=== PATIENT | female | born 1965 | race Caucasian/White ===

== ENCOUNTER 2024-11-13 14:07 | Outpatient (CLI) | payer BC, SELFPAY ==
--- OUTSIDE RECORDS SUMMARY | 2024-11-13 14:21 | XMS_ITS | Encounter Summary ---
Author Organization [facility] Address [address] [place] [address] Care Team Providers Care Jelly Filter Tender Name Role Phone Laura Aguilar Primary Care Provider + [phone] Jeannette Gloria NP Primary Care Provider + [phone] Encounter Details Date Type Department Care Team (Late st Contact Info) Description 10/17/2022 [employer] Message Enc [facility] Medical Group Family & Internal Medicine [address] [address] [facility] urine culture result Social History Tobacco Use Types Packs/Day Years Used Date Smoking Tobacco: Former Smokeless Tobacco: Never Alcohol Use Standard Drinks/Week Comments Yes 0 (1 standard drink = 0.6 oz pur e alcohol) social use PHQ-2 Answer Date Recorded Patient Health Questionnaire-2 Score 0 10/19/2022 Comments No Sex and Gender Information Value Date Recorded Sex Assigned at Female 08/29/2024 7:35 AM DIRECT SUPPORT PROFESSIONAL CAREGIVER Legal Sex Female 4:16 PM CDT Gender Identity Not on file Sexual Orientation Not on file COVID-19 Exposure Response Date Recorded In the last 10 days, have yo u been in contact with someone who was confirmed or suspected to have Coronavirus/COVID-19? No / Unsure 10/19/2022 6:59 AM CDT documented as of this encounter Functional Status * Over the past 2 weeks, how often have you been bothered by any of the following problems? Question Answer Date of Assessment Author Status Little interest or pleasure in doing things Not at all 10/19/2022 7:09 AM CDT Maritza Paz MA Active Feeling down, depressed, or hopeless Not at all 10/19/2022 7:09 AM CDT Maritza Paz MA Activ e Patient Health Questionnaire-2 Score 0 10/19/2022 7:09 AM CDT Maritza Paz MA Active documented as of this encounter Plan of Treatment Not on file documented as of this encounter Visit Diagnoses Not on filedocumented in this encounter Care Teams Jelly Filter Tender Relationship Specialty [place] [address] [place] [address] PCP - General PHYSICIAN NECKTIES PAINTER 01/12/22 11/15/23 [place] [address] [address] [place] [address] PCP - General Nurse Practitioner Family 12/05/23 documented as of this encounter
--- OUTSIDE RECORDS SUMMARY | 2024-11-13 14:21 | XMS_ITS | Encounter Summary ---
Author Organization [facility] Address [address] [place] [address] Care Team Providers Care Property Insurance Agent Name Role Phone Laura Aguilar Primary Care Provider + [phone] Jeannette Gloria NP Primary Care Provider + [phone] Encounter Details Date Type Department Care Team (Late st Contact Info) Description 11/12/2023 [employer] Message Enc [facility] Medical Group Family & Internal Medicine [address] [address] Oz [facility] Provider Need follow up appt Social History Tobacco Use Types Packs/Day Years Used Date Smoking Tobacco: Former Passive Smoke Exposure: Past Smokeless Tobacco: Never Alcohol Use Standard Drinks/Week Comments Yes 0 (1 standard drink = 0.6 oz pur e alcohol) social use PHQ-2 Answer Date Recorded Patient Health Questionnaire-2 Score 0 05/10/2023 Comments No Sex and Gender Information Value Date Recorded Sex Assigned at Female 08/29/2024 7:35 AM HEAD OF STORE OPERATIONS Legal Sex Female 4:16 PM CDT Gender Identity Not on file Sexual Orientation Not on file documented as of this encounter Plan of Treatment Not on file documented as of this encounter Visit Diagnoses Not on filedocumented in this encounter Additional Health Concerns Assessment Noted Time PHQ-9 Depression Total Score: 0 11/14/19 23 1:00 PM CDT documented as of this encounter Care Teams Property Insurance Agent Relationship Specialty [place] [address] [place] [address] PCP - General PHYSICIAN SOAP DRIER OPERATOR 01/12/22 11/15/23 [place] [address] [address] [place] [address] PCP - General Nurse Practitioner Family 12/05/23 documented as of this encounter
--- OUTSIDE RECORDS SUMMARY | 2024-11-13 14:21 | XMS_ITS | Encounter Summary ---
Author Organization [facility] Health Address [address] [place] [address] Care Team Providers Care Restaurant Shift Supervisor Name Role Phone Andrzej Romero MD Primary Care Provider [phone] Wilmer Mccurdy MD Unavailable [phone] Encounter Details Date Type Department Care Team (Late st Contact Info) Description 05/29/2014 [facility] Outpatient Visit EXTERNAL NON-[facility] DEPT Star Bland MD Social History Tobacco Use Types Packs/Day Years Used Date Smoking Tobacco: Former Smokeless Tobacco: Never Alcohol Use Standard Drinks/Week Comments Yes 0 (1 standard drink = 0.6 oz pur e alcohol) Comments Unknown Sex and Gender Information Value Date Recorded Sex Assigned at Not on file Legal Sex Female 9:37 AM CDT Gender Identity Not on file Sexual Orientation Not on file 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
--- OUTSIDE RECORDS SUMMARY | 2024-11-13 14:21 | XMS_ITS | Clinical Summary ---
Author Organization [facility] Address [address] [place] [address] Care Team Providers Care Metal Room Dental Technician Name Role Phone Unavailable Primary Care Provider Unavailabl e Allergies Active Allergy Reactions Criticality Noted Date Comments Fentanyl Rash Low 05/12/2014 Patch/ RASH Morphine Other (See Comments) High 10/17/2022 Chest burning Medications venlafaxine (EFFEXOR XR) 37.5 mg Extended Release 24 hour capsule Take 37.5 mg by mouth daily. Active traMADol (ULTRAM) 50 mg tablet Take 50 mg by mouth 4 times daily as needed for Pain. 5 Active predniSONE (DELTASONE) 5 mg tablet Take 5 mg by mouth 2 times daily with meals. 5 Active hydroxychloroq uine (PLAQUENIL) 200 mg tablet Take 200 mg by mouth 2 times daily. 5 Active amLODIPine (NORVASC) 10 mg tablet Take 10 mg by mouth daily. 4 Active omeprazole (PriLOSEC) 40 mg Capsule, Delayed Release(E.C.) Take 40 mg by mouth daily. 4 Active traZODone (DESYREL) 50 mg tablet Take 50 mg by mouth daily at bedtime. 4 Active folic acid (FOLVITE) 1 mg tablet Take 1 mg by mouth daily. 5 Active methotrexate PF 25 mg/mL Solution Inject 1 mL by subcutaneous injection every 7 days. Active buPROPion HCL (WELLBUTRIN XL) 300 mg Extended Release 24 hour tablet Take 300 mg by mouth daily in the morning. 4 Active cyanocobalamin (VITAMIN B-12) 1,000 mcg/mL Solution Inject 1,000 mcg by intramuscular injection every 30 days. Active abatacept (ORENCIA SUBCUT) Inject 125 mg/mL by subcutaneous injection every 7 days. Active Active Problems No known active problems Encounters Date Type Department Care Team Description 11/13/2024 1:30 PM CDT Office Visit [facility] [place] [address] [place] [address] Wilmer Varela MD Chronic anemia (Primary Dx) 10/08/2024 Orders Only [facility] [place] [address] [place] [address] Wilmer Varela MD from Last 3 Months Family History Medical History Relation Name Comments Diabetes Brother No Known Problems Child Diabetes Father Heart Disease Father SLE Mother Diabetes Sister 1 No Known Problems Sister 2 Relation Name Status Comments Brother Alive Child Alive Father Mother Sister 1 Alive Sister 2 Alive Social History Tobacco Use Types Packs/Day Years Used Date Smoking Tobacco: Never Smokeless Tobacco: Never Alcohol Use Standard Drinks/Week Comments Yes 0 (1 standard drink = 0.6 oz pur e alcohol) Occasionally Comments Unknown Sex and Gender Information Value Date Recorded Sex Assigned at Not on file Legal Sex Female 9:53 AM NEWS VIDEOTAPE EDITOR Gender Identity Not on file Sexual Orientation Not on file Last Filed Vital Signs Vital Sign Reading Time Taken Comments Blood Pressure 157/93 11/13/2024 1:33 PM CDT Pulse 83 11/13/2024 1:27 PM CDT Temperature 35.8 C (96.5 F) 11/13/2024 1:27 PM CDT Respiratory Rate 16 11/13/2024 1:27 PM CDT Oxygen Saturation 98% 11/13/2024 1:27 PM CDT Inhaled Oxygen Concentration - - Weight 70.1 kg (154 lb 9.6 oz) 11/13/2024 1:27 P M CDT Height 157.5 cm (5' 2 ) 11/13/2024 1:27 PM CDT Body Mass Index 28.28 11/13/2024 1:27 PM CDT Plan of Treatment Upcoming Encounters Date Type Department Care Team (Late Contact Info) Description 01/19/2025 2:00 PM CDT Telephone Check Up [facility] [place] [address] [facility] [address] [place] [address] Wilmer Varela MD [address] [facility] [address] [place] [address] Health Maintenance Due Date Last Done Comments Pre-Diabetes and Diabetes Screening 1965 DTAP/TDAP/TD VACCINES (1 - Tdap) 1984 HEPATITIS B VACCINES (1 of 3 - 19+ 3-dose series) 1984 ZOSTER VACCINE (1 of 2) 1984 FIT-DNA Q 3 years 2010 FIT/FOBT Q 1 year 2010 Flex Sig/CT Colonography Q 5 years 2010 COVID-19 Vaccine (3 - Moderna risk series) 01/18/2021 12/21/2020, 11/16/2020 BREAST CANCER SCREENING 01/24/2023 01/24/2022, 01/24 INFLUENZA VACCINE (#1) 2024 Preventative Visit- Commercial 07/30/2024 COLORECTAL SCREENING 11/06/2027 11/05/2017 Colorectal Cancer Screening 11/06/2027 Procedures Procedure Name Priority Date/Time Associated Diagnosis Comments BASIC METABOLIC PANEL Routine 10/02/2024 3:48 PM NEWS VIDEOTAPE EDITOR BASIC METABOLIC PANEL Routine 10/02/2024 3:46 PM NEWS VIDEOTAPE EDITOR from Last 3 Months Results * BASIC METABOLIC PANEL (10/02/2024 3:48 PM NEWS VIDEOTAPE EDITOR) Only the most recent of2 resultswithin the time period is included. Blood us Provider Scanning CHEMISTRY ORDERABLES Final Res ult from Last 3 Months Insurance BCBS OUT OF STATE
--- OUTSIDE RECORDS SUMMARY | 2024-11-13 14:21 | XMS_ITS | Encounter Summary ---
Author Organization [facility] Address [address] [place] [address] Care Team Providers Care Collection Advisor Name Role Phone Laura Aguilar Primary Care Provider + [phone] Jeannette Gloria NP Primary Care Provider + [phone] Encounter Details Date Type Department Care Team (Late st Contact Info) Description 01/26/2023 [employer] Message Enc [facility] Medical Group Family & Internal Medicine [address] [address] [facility] Social History Tobacco Use Types Packs/Day Years Used Date Smoking Tobacco: Former Smokeless Tobacco: Never Alcohol Use Standard Drinks/Week Comments Yes 0 (1 standard drink = 0.6 oz pur e alcohol) social use PHQ-2 Answer Date Recorded Patient Health Questionnaire-2 Score 0 11/13/2022 Comments No Sex and Gender Information Value Date Recorded Sex Assigned at Female 08/29/2024 7:35 AM TUG BOAT CAPTAIN Legal Sex Female 4:16 PM CDT Gender Identity Not on file Sexual Orientation Not on file documented as of this encounter Plan of Treatment Not on file documented as of this encounter Visit Diagnoses Not on filedocumented in this encounter Additional Health Concerns Assessment Noted Time PHQ-9 Depression Total Score: 0 11/14/19 23 1:00 PM CDT documented as of this encounter Care Teams Collection Advisor Relationship Specialty Start Date End Date Laura Agu[place] [id number] [place] [address] [place] [address] PCP - General PHYSICIAN HEAT SEAL OPERATOR 01/12/22 11/15/23 [place] [address] [address] [facility] [address] [place] [address] PCP - General Nurse Practitioner Family 12/05/23 documented as of this encounter
--- OUTSIDE RECORDS SUMMARY | 2024-11-13 14:21 | XMS_ITS | Encounter Summary ---
Author Organization [facility] Address [address] [place] [address] Care Team Providers Care Training Personnel Supervisor Name Role Phone Laura Aguilar Primary Care Provider + [phone] Jeannette Gloria NP Primary Care Provider + [phone] Encounter Details Date Type Department Care Team (Late st Contact Info) Description 10/17/2022 [employer] Message Enc [facility] Medical Group Family & Internal Medicine [address] [address] [facility]ment Social History Tobacco Use Types Packs/Day Years Used Date Smoking Tobacco: Former Smokeless Tobacco: Never Alcohol Use Standard Drinks/Week Comments Yes 0 (1 standard drink = 0.6 oz pur e alcohol) social use PHQ-2 Answer Date Recorded Patient Health Questionnaire-2 Score 0 10/19/2022 Comments No Sex and Gender Information Value Date Recorded Sex Assigned at Female 08/29/2024 7:35 AM PAINTING DEPARTMENT SUPERVISOR Legal Sex Female 4:16 PM CDT Gender [...] on filedocumented in this encounter Care Teams Training Personnel Supervisor Relationship Specialty [place] [address] [place] [address] PCP - General PHYSICIAN HEATING ELEMENT REPAIRER 01/12/22 11/15/23 [place] [address] [address] [place] [address] PCP - General Nurse Practitioner Family 12/05/23 documented as of this encounter
--- OUTSIDE RECORDS SUMMARY | 2024-11-13 14:21 | XMS_ITS | Encounter Summary ---
Author Organization [facility] Address [address] [place] [address] Care Team Providers Care Gum Puller Name Role Phone Lucrecia Diaz MD Primary Care Provider [facility] Laura Mejia Primary Care Provider + [phone] Jeannette Gloria NP Primary Care Provider + [phone] Encounter Details Date Type Department Care Team (Late st Contact Info) Description 05/16/2018 Social Work HEALTH INFO [facility] Scanned, Documents Social History Tobacco Use Types Packs/Day Years Used Date Smoking Tobacco: Never Assessed Comments Unknown Sex and Gender Information Value Date Recorded Sex Assigned at Female 08/29/2024 7:35 AM DOT COMPLIANCE MANAGER Legal Sex Female 4:16 PM CDT Gender Identity Not on file Sexual Orientation Not on file documented as of this encounter Plan of Treatment Not on file documented as of this encounter Visit Diagnoses Not on filedocumented in this encounter Care Teams Gum Puller Relationship Specialty Start Date End Date Lucrecia Diaz MD PCP - General INTERNAL MEDICINE 07/26/18 03/29/20 [place] [address] [place] [address] PCP - General PHYSICIAN CLIENT SERVICES ASSOCIATE 01/12/22 11/15/23 Jeannette Gloria, PAIGE [address] [address] [place] [address] PCP - General Nurse Practitioner Family 12/05/23 documented as of this encounter
--- OUTSIDE RECORDS SUMMARY | 2024-11-13 14:21 | XMS_ITS | Clinical Summary ---
Author Organization [facility] Address [address] [place] [address] Care Team Providers Care Identification And Records Commander Name Role Phone Faizan Jeannette Saeur HAZARDOUS MATERIALS HANDLER Primary Care Provider + [phone] Allergies Active Allergy Reactions Criticality Noted Date Comments Fentanyl Rash Low 05/12/2014 Patch/ RASH Morphine Other (see comment) High 10/17/2022 Chest burning Medications traMADol 50 MG tablet Take 1 tablet (50 mg total) by mouth every 6 (six) hours as needed. 8 Active folic acid 1 MG tablet Take 1 tablet (1 mg total) by mouth daily. 8 Active cyanocobalamin 1000 MCG/ML injection 50,000 mLs (50,000,000 mcg total) monthly. 8 Active hydroxychloroquin e 200 MG tablet Take 2 tablets (400 mg total) by mouth. 4 Active gabapentin (NEURONTIN) 300 MG capsule TAKE 2 CAPSULES BY MOUTH EVERY DAY AT BEDTIME FOR SLEEP 2 Active HYDROcodone-aceta minophen (NORCO) 5-325 MG tablet TAKE 1 TABLET BY MOUTH THREE TIMES DAILY NEEDED FOR SEVERE PAIN 2 Active Insulin Syringe-Needle U-100 (INSULIN SYRINGE 1CC/31GX5/16 ) 31G X 5/16 1 ML Misc USE DIRECTED UNDER THE SKIN WEEKLY 3 Active Methotrexate Sodium (METHOTREXATE, CONTAINS PRESERVATIVE,) 50 MG/2ML injection INJECT 1 ML UNDER THE SKIN WEEKLY 3 Active diclofenac EC (VOLTAREN) 75 MG tablet Take 1 tablet (75 mg total) by mouth 2 (two) times daily. 4 Active Etanercept (ENBREL SURECLICK SC) Inject 40 mg into the skin once a week. Active buPROPion XL (WELLBUTRIN XL) 300 MG 24 hr tabletIndications :Moderate major depression (CMS/HCC),Depress ion screening Take 1 tablet (300 mg total) by mouth every morning. 90 tablet 3 4 Active omeprazole (PRILOSEC) 40 MG capsuleIndication s:Gastroesophagea l reflux disease without esophagitis Take 1 capsule (40 mg total) by mouth daily. 90 capsule 3 4 Active traZODone (DESYREL) 50 MG tabletIndications :Primary insomnia Take 1 tablet (50 mg total) by mouth nightly at bedtime. 90 tablet 3 4 Active amLODIPine (NORVASC) 10 MG tabletIndications :Essential hypertension Take 1 tablet (10 mg total) by mouth nightly at bedtime. 90 tablet 3 4 Active lisinopril-hydroC HLOROthiazide (ZESTORETIC) 20-12.5 MG tabletIndications :Essential hypertension Take 2 tablets by mouth every morning. 180 tablet 3 4 Active venlafaxine XR (EFFEXOR XR) 37.5 MG 24 hr capsuleIndication s:Generalized anxiety disorder,Moderate episode of recurrent major depressive disorder (CMS/HCC) Take 1 capsule (37.5 mg total) by mouth daily. 90 capsule 3 4 Active famotidine (PEPCID) 20 MG tabletIndications :Gastroesophageal reflux disease without esophagitis Take 1 tablet (20 mg total) by mouth 2 (two) times daily. 180 tablet 1 4 Active sodium chloride 1 GM tablet Take 1 tablet (1 g total) by mouth 3 (three) times daily. Active meclizine (ANTIVERT) 25 MG tabletIndications :Dizziness Take 1 tablet (25 mg total) by mouth 3 (three) times daily as needed for Dizziness. 90 tablet 5 Active ferrous gluconate (FERGON) 324 (38 FE) MG tabletIndications :Low serum iron Take 1 tablet (324 mg total) by mouth every other day. 45 tablet 1 5 Active Active Problems Problem Noted Date Diagnosed Date Generalized anxiety disorder 01/17/2024 Overweight (BMI 25.0-29.9) 01/17/2024 Thumb pain, left 07/30/2018 Assessment & Plan (07/30/2018 10:30 AM MED AIDE): Suspect related to RA flare. She is very interested in finding a new senior product marketing manager who is more responsive. In meantime will get Xray and she can try increasing her tramadol for next few days as only taking about one every Other day. Tobacco abuse 12/28/2017 Depression 03/24/2014 GERD (gastroesophageal reflux disease) 4 Essential hypertension 03/24/2014 Insomnia 03/24/2014 [facility] with negative rheumatoid factor ([facility]) 03/24/2014 Overview (12/07/2023): Seronegative arthritis Vitamin D deficiency 03/24/2014 Encounters Date Type Department Care Team Description 10/03/2024 Orders Only [facility] Family & Internal [facility] [id number] [place] [phone] Jeannette Gloria NP 10/02/2024 1:22 PM MED AIDE - 10/02/2024 11:59 PM MED AIDE Hospital Encounter [facility] [address] [place] [address] Jeannette Gloria NP Discharge Disposition: Home or Self Care (Routine Discharge) 10/02/2024 Travel 09/11/2024 12:24 PM MED AIDE - 09/11/2024 11:59 PM MED AIDE Hospital Encounter [facility] [address] [place] [address] Jeannette Gloria NP Discharge Disposition: Home or Self Care (Routine Discharge) 09/11/2024 8:20 AM MED AIDE Laboratory Only [facility] Family & Internal [facility] [address] [place] [address] Jeannette Gloria NP 09/11/2024 Travel 09/09/2024 Telephone [facility] Internal [facility] [address] [place] [address] Jeannette Gloria, PAIGE Referral 09/09/2024 MyChart Message Enc [facility] Internal [facility] [id number] [place] [phone] [facility] Provider Medication question 09/05/2024 Orders Only [facility] Internal [address] [phone] Jeannette Gloria NP 09/03/[address] [phone] Jeannette Gloria NP Referral 09/01/2024 1:10 PM MED AIDE - 09/01/2024 11:59 PM MED AIDE Hospital Encounter [facility] [address] [place] [address] Jeannette Gloria, PAIGE Discharge Disposition: Home or Self Care (Routine Discharge) 09/01/2024 10:00 AM MED AIDE Laboratory Only [address] [address] Jeannette Gloria NP 09/01/2024 9:20 AM MED AIDE Office Visit [facility] Internal [address] [phone] Jeannette Gloria NP Follow Up (5 month follow up hypertension / needing additional blood work ) 09/01/2024 Travel 08/29/2024 12:55 PM MED AIDE - 08/29/2024 11:59 PM MED AIDE Hospital Encounter [facility] [address] [place] [address] Jeannette Gloria NP Discharge Disposition: Home or Self Care (Routine Discharge) 08/29/2024 7:50 AM MED AIDE Laboratory Only [facility] Family & Internal [address] [address] Jeannette Gloria NP 08/29/2024 Travel 08/27/2024 Scan [facility] Scanned, [facility] 08/27/2024 Orders Only [facility] Internal [address] [phone] Jeannette Gloria NP 08/27/2024 Telephone [facility] Internal [address] [address] Jeannette Gloria, PAIGE Other (Abnormal labs ) 08/25/2024 Scan [facility] Scanned, [facility] Lab (SCAN) from Last 3 Months Immunizations Immunization Administration Dates Next Due Influenza Adult (Generic) 06/14/2022,06/21/2018 MODERNA COVID-19 (12+) MRNA, LNP-S, PF, 100 MCG/ 0.5 ML DOSE 12/21/2020,11/16/2020 Family History Medical History Relation Comments Lupus Mother Relation Status Comments Mother Social History Tobacco Use Types Packs/Day Years Used Date Smoking Tobacco: Former Passive Smoke Exposure: Past Smokeless Tobacco: Never Tobacco Cessation:Counseling Given: Not Answered Alcohol Use Standard Drinks/Week Comments Yes 0 (1 standard drink = 0.6 oz pur e alcohol) social use PHQ-2 Answer Date Recorded Patient Health Questionnaire-2 Score 0 09/01/2024 Comments No Sex and Gender Information Value Date Recorded Sex Assigned at Female 08/29/2024 7:35 AM MED AIDE Legal Sex Female 4:16 PM CDT Gender Identity Not on file Sexual Orientation Not on file Last Filed Vital Signs Vital Sign Reading Time Taken Comments Blood Pressure 140/86 09/01/2024 9:24 AM MED AIDE Pulse 84 09/01/2024 9:24 AM MED AIDE Temperature 36.8 C (98.2 F) 09/01/2024 9:24 AM MED AIDE Respiratory Rate 18 09/01/2024 9:24 AM MED AIDE Oxygen Saturation 99% 09/01/2024 9:24 AM MED AIDE Inhaled Oxygen Concentration - - Weight 68.2 kg (150 lb 6.4 oz) 09/01/2024 9:24 A M MED AIDE Height 154.9 cm (5' 1 ) 09/01/2024 9:24 AM MED AIDE Body Mass Index 28.42 09/01/2024 9:24 AM MED AIDE Plan of Treatment Health Maintenance Due Date Last Done Comments Annual Physical 1968 Pneumococcal Vaccine: 50+ Years (1 of 1 - PCV) 2015 Mammogram Screening 01/25/2024 01/24/2022 COVID-19 Vaccine (3 - season) 2024 12/21/2020, 11/16/2020 DTaP, Tdap and Td Vaccines (1 - Tdap) 12/06/2024 Postponed from 1984 (Patient Refused) Zoster Vaccines (1 of 2) 12/06/2024 Pos tponed from 2015 (Patient Refused) Colorectal Cancer Screening Colonoscopy (10 Years) 11/06/2027 11/05/2017 Hepatitis C Completed 08/24/2023, 04/30, 05/25/2021, Additional history exists PHQ-2 (Physician [place]) Completed 09/01/2024 Meningococcal B Vaccine Aged Out No l onger eligible based on patient's age to complete this topic Meningococcal Vaccine Aged Out No meaghan elis eligible based on patient's age to complete this topic RSV Immunizations Under 20 Months Aged Out No longer eligible based on patient's age to complete this topic Procedures Procedure Name Priority Date/Time Associated Diagnosis Comments BASIC METABOLIC PANEL Routine 10/02/2024 1:27 PM MED AIDE Hyponatremia IRON SAT PANEL (IRON,IBC,%SAT) Routine 10/02/2024 1:27 PM MED AIDE Iron deficiency anemia, unspecified iron deficiency anemia type CBC W/DIFF AUTOMATED Routine 10/02/2024 1:27 PM MED AIDE Iron deficiency anemia, unspecified iron deficiency anemia type COLLECTION VENOUS BLOOD VENIPUNCTURE Routine 09/11/2024 8:08 AM MED AIDE Hyponatremia BASIC METABOLIC PANEL Routine 09/11/2024 8:08 AM MED AIDE Hyponatremia COLLECTION VENOUS BLOOD VENIPUNCTURE Routine 09/01/2024 9:59 AM MED AIDE Hyponatremia BASIC METABOLIC PANEL Routine 09/01/2024 9:58 AM MED AIDE Hyponatremia COLLECTION VENOUS BLOOD VENIPUNCTURE Routine 08/29/2024 7:36 AM MED AIDE Hyponatremia BASIC METABOLIC PANEL Routine 08/29/2024 7:35 AM MED AIDE Hyponatremia OUTSIDE LAB (SCAN ORDER) 08/25/2024 OUTSIDE LAB (SCAN ORDER) 08/25/2024 HEP C SCANNED ORDERS Routine 08/24/2023 MG SCREENING W JOLIE BROOK DIGI Routine 01/24/2022 4:03 PM CDT Breast cancer screening by mammogram COLONOSCOPY Routine 11/05/2017 12:00 AM CDT from Last 3 Months or Most Recently Relevant to Health Maintenance Results * (ABNORMAL) IRON SAT PANEL (IRON,IBC,%SAT) (10/02/2024 1:27 PM MED AIDE) IRON 12(L) 50 - 170 MCG/DL 10/02/2024 2:05 PM MED AIDE [facility] IRON BINDING CAPACITY 413 250 - 450 MCG/DL 10/02/2024 2:05 PM MED AIDE [facility] IRON SATURATION 3(L) 20 - 55 % 2:05 PM [facility] 10/02/2024 1:27 PM MED AIDE us Jeannette Gloria NP LABORATORY Final Result [facility] [address] [place] [address], [place] [phone] * (ABNORMAL) BASIC METABOLIC PANEL (10/02/2024 1:27 PM MED AIDE) Only the most recent of4 resultswithin the time period is included. GLUCOSE 136(H) 70 - 99 MG/DL 10/02/2024 2:04 PM [facility] BUN 9 7 - 18 MG/DL 10/02/2024 2:04 PM [facility] CREATININE S/P/B 0.98 0.55 - 1.02 MG/DL 10/02/2024 2:04 PM [facility] SODIUM S/P/B 131(L) 136 - 145 MMOL/L 10/02/2024 2:04 PM [facility] POTASSIUM S/P/B 4.2 3.5 - 5.1 MMOL/L 10/02/2024 2:04 PM [facility] CHLORIDE S/P/B 95(L) 100 - 108 MMOL/L 10/02/2024 2:04 PM [facility] CO2 25.5 21 - 32 MMOL/L 10/02/2024 2:04 PM [facility] CALCIUM S/P/B 8.9 8.5 - 10.1 MG/DL 10/02/2024 2:04 PM [facility] ANION GAP 10.5 5 - 15 MMOL/L 10/02/2024 2:04 PM [facility] BUN CREATININE RATIO 9.2 6 - 26 10/02/2024 2:04 PM [facility] GFR ESTIMATE 66(L) >90 ML/MIN/1.7 3 M2 10/02/2024 2:04 PM [facility] Comment: NOTE: eGFR is not calculated for patients <18 years of age. This is an estimated GFR calculation using the new CKD EPI creatinine equation without race and so does not require a correction factor for race. This estimated GFR should not be used for calculating drug doses. 10/02/2024 1:27 PM MED AIDE us Jeannette Gloria NP LABORATORY Final Result [facility] [address] [place] [address], * (ABNORMAL) CBC W/DIFF AUTOMATED (10/02/2024 1:27 PM MED AIDE) WBC 10.83 4.4 - 11.0 x10'3/uL 10/02/2024 1:54 PM [facility] RBC 3.79(L) 4.50 - 5.10 x10'6/uL 10/02/2024 1:54 PM [facility] HGB 9.8(L) 12.3 - 15.3 G/DL 10/02/2024 1:54 PM [facility] HCT 32.7(L) 35.9 - 44.6 % 10/02/2024 1:54 PM [facility] MCV 86.3 80.0 - 96.0 FL 10/02/2024 1:54 PM [facility] MCH 25.9 25.3 - 30.9 PG 10/02/2024 1:54 PM [facility] MCHC 30.0(L) 31.0 - 34.1 G/DL 10/02/2024 1:54 PM [facility] RDW 18.6(H) 12.4 - 15.1 % 10/02/2024 1:54 PM [facility] PLT 309 151 - 353 x10'3/uL 10/02/2024 1:54 PM [facility] MPV 9.7 9.6 - 12.0 FL 10/02/2024 1:54 PM [facility] RBC MORPHOLOGY NORMAL 10/02/2024 1:54 PM [facility] PLT MORPH. NORMAL 10/02/2024 1:54 PM [facility] WBC MORPHOLOGY NORMAL 10/02/2024 1:54 PM [facility] LYMPHOCYTES % 16.0 15.8 - 45.0 % 10/02/2024 1:54 PM [facility] NEUTROPHILS % 76.4(H) 42.1 - 71.9 % 10/02/2024 1:54 PM MED AIDE [facility] MONOCYTES % 6.6 5.7 - 12.5 % 10/02/2024 1:54 PM [facility] EOSINOPHILS 0.1 0.0 - 5.6 % 10/02/2024 1:54 PM [facility] BASOPHILS 0.5 0.0 - 1.3 % 10/02/2024 1:54 PM [facility] ABS. NEUTROPHILS 8.29(H) 1.40 - 6.00 x10'3/uL 10/02/2024 1:54 PM MED AIDE [facility] IMMATURE GRANS % 0.4 0.0 - 0.5 % 10/02/2024 1:54 PM [facility] ABS. LYMPHOCYTES 1.73 0.80 - 4.70 x10'3/uL 10/02/2024 1:54 PM [facility] 10/02/2024 1:27 PM MED AIDE us Jeannette Gloria NP LABORATORY Final Result [facility] [address] [place] [address], * OUTSIDE LAB (SCAN ORDER) (08/25/2024) Only the most recent of2 resultswithin the time period is included. 08/25/2024 us [facility] Scanned SCANNING Final Resu lt * HEP C SCANNED ORDERS (08/24/2023) us [facility] Scanned SCANNING Final Resu lt [facility] ONBASE * MG SCREENING W JOLIE BROOK DIGI (01/24/2022 4:03 PM CDT) Anatomical Region Laterality Modality Breast Bilateral Mammography 02/02/2022 9:19 AM CDT Impressions 02/02/2022 9:22 AM CDT IMPRESSION: 1. No mammographic evidence of malignancy. 2. BI-RADS Category 1 - negative. MQSA BI-RADS Categories: Category 0 - needs additional imaging evaluation. Category 1 - negative. Category 2 - benign findings. Category 3 - probably benign findings, but short interval follow-up is recommended. Category 4 - suspicious abnormality and biopsy should be considered though the lesion may well be benign. Category 5 - highly suggestive of malignancy and appropriate action should be taken. Category 6 - known biopsy-proven malignancy A) A negative report should not delay a biopsy if a dominant or clinically suspicious mass is present. B) Adenosis and dense breasts may obscure an underlying neoplasm. C) Study interpreted with computer aided detection. Ordered By: LAURA ANDRADE Interpreted By: Johnny Fierro, 02/02/2022 9:19 AM Narrative 02/02/2022 9:22 AM CDT IMAGING STUDIES: Bilateral screening mammograms with computer-aided detection with 2-D and 3-D imaging. Tomosynthesis. DATE: 01/24/2022 3:10 PM HISTORY: Screening . Routine exam COMPARISON: 06/11/2012. 10/19/2015. TISSUE TYPE: The breast tissue is almost entirely fatty. FINDINGS: 1. Bilateral screening mammograms with computer detection with 2-D and 3-D imaging. Tomosynthesis. Fatty replaced fibroglandular tissue pattern is present. Stable benign lymph nodes in the upper outer quadrants of both breasts 2. No malignant microcalfcifications, new dominant masses, or architectural distortion. 3. No skin thickening or nipple retraction. Axillary regions are within normal limits. us Laura CHAO MAMMO Final Result * Colonoscopy (11/05/2017 12:00 AM CDT) 11/05/2017 11/05/2017 Narrative [facility] TO EPIC CONVERSION - 11/05/2017 12:00 AM CDT Documented hx of procedure Procedure Note Shira Orlando MD - 06/02/2018 Documented hx of procedure us Generic Conversion [facility] PROCEDURE ORDERABLES Final Result [facility] TO EPIC CONVERSION from Last 3 Months or Most Recently Relevant to Health Maintenance Insurance [employer] [facility] [employer] [facility] Advance Directives Documents on File Type Date Recorded Patient Dictaphone Technician Expl anation Advance Directives and Living Will 11/05/2017 12:00 AM ADVANCED DIRECTIVES Care Teams Identification And Records Commander Relationship Specialty [place] [id number] [facility] [address] [place] [address] PCP - General Nurse Practitioner Family 12/05/23
--- OUTSIDE RECORDS SUMMARY | 2024-11-13 14:21 | XMS_ITS | Encounter Summary ---
Author Organization [facility] Address [address] [place] [address] Care Team Providers Care Research Microbiologist Name Role Phone Jeannette Gloria NP Primary Care Provider + [phone] Encounter Details Date Type Department Care Team (Late st Contact Info) Description 01/25/2024 Factonomy Message Enc [facility] Family & Internal Medicine [address] [address] Jeannette Gloria [place] [id number] [place] [address] Blood pressure Social History Tobacco Use Types Packs/Day Years Used Date Smoking Tobacco: Former Passive Smoke Exposure: Past Smokeless Tobacco: Never Alcohol Use Standard Drinks/Week Comments Yes 0 (1 standard drink = 0.6 oz pur e alcohol) social use PHQ-2 Answer Date Recorded Patient Health Questionnaire-2 Score 0 01/25/2024 Comments No Sex and Gender Information Value Date Recorded Sex Assigned at Female 08/29/2024 7:35 AM [employer]OR[employer]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 Question Answer Date of Assessment Author Status Little interest or pleasure in doing things Not at all 01/25/2024 10:30 AM CDT Jory Kuhn LPN Active Feeling down, depressed, or hopeless Not at all 01/25/2024 10:30 AM France Gama LPN Active Patient Health Questionnaire-2 Score 0 01/25/2024 10:30 AM Jory Gama LPN Active * Question Answer Date of Assessment Author Status Trouble falling or staying asleep, or sleeping too much Not at all 01/25/2024 10:30 AM Jory Gama LPN Active Feeling tired or having little energy Several days 01/25/2024 10:30 AM Jory Gama LPN Active Poor appetite or overeating Several days 01/25/2024 10:30 AM Jory Gama LPN Active Feeling bad about yourself - or that you are a failure or have let yourself or your family down Not at all 01/25/2024 10:30 AM Jory Gama LPN Active Trouble concentrating on things, such as reading the newspaper or watching television Not at all 01/25/2024 10:30 AM Jory Gama LPN Active Moving or speaking so slowly that other people could have noticed? Or the opposite - being so fidgety or restless that you have been moving around a lot more than usual. Not at all 01/25/2024 10:30 AM Jory Gama LPN Active Thoughts that you would be better off or hurting yourself in some way Not at all 01/25/2024 10:30 AM Jory Gama LPN Active Patient Health Questionnaire-9 Score 2 01/25/2024 10:30 AM Jory Gama LPN Active * Calculated C-SSRS Risk Score (Lifetime/Recent) Answer Date of Assessment Author Status No Risk Indicated 01/25/2024 10:30 AM Mainor Gama LPN Active * If you checked off any problems on this questionnaire so far, Question Answer Date of Assessment Author Status How difficult have these problems made it for you to do your work, take care of things at home, or get along with other people? Not difficult at all 01/25/2024 10:30 AM Jory Gama LPN Active * Over the last 2 weeks, how often have you been bothered by any of the following problems? Question Answer Date of Assessment Author Status Feeling nervous, anxious, or on edge 0 01/25/2024 10:31 AM Jory Gama LPN Ac tive Not being able to stop or control worrying 0 01/25/2024 10:31 AM Jory Gama LPN A ctive Worrying too much about different things 0 01/25/2024 10:31 AM Jory Gama LPN A ctive Trouble relaxing 1 01/25/2024 10:31 AM Jory Gama LPN Active Being so restless that it is hard to sit still 1 01/25/2024 10:31 AM Jory Gaam L PN Active Becoming easily annoyed or irritable 1 01/25/2024 10:31 AM Jory Gama LPN Ac tive Feeling afraid as if something awful might happen 0 01/25/2024 10:31 AM Jory Gama LPN Ac tive JULIETA-7 Total Score 3 01/25/2024 10:31 AM Jory Savage LPN Active * [place] Suicide Severity Rating Scale (Screener/Recent Self-Report) Question Answer Date of Assessment Author Status 1. Wish to be (Past 1 Month) No 01/25/2024 10:30 AM Jory Gama LPN Ac tive 2. Non-Specific Active Suicidal Thoughts (Past 1 Month) No 01/25/2024 10:30 AM Jory Gama LPN Ac tive 6. Suicidal Behavior (Lifetime) No 01/25/2024 10:30 AM CDT Rokita, Jory M, MEDICAL BILLING SUPERVISOR Ac tive documented as of this encounter Plan of Treatment Not on file documented as of this encounter Visit Diagnoses Not on filedocumented in this encounter Additional Health Concerns Assessment Noted Time PHQ-9 Depression Total Score: 2 01/25/20 24 10:30 AM CDT documented as of this encounter Care Teams Research Microbiologist Relationship Specialty Start Date End Date Jeannette Gloria, EQUIPMENT SERVICE ASSOCIATE [address] [place] [address] PCP - General Nurse Practitioner Family 12/05/23 documented as of this encounter
--- OUTSIDE RECORDS SUMMARY | 2024-11-13 14:21 | XMS_ITS | Clinical Summary ---
Author Organization [facility] Address [address] [place] [address] Care Team Providers Care Spinner Cap Frame Name Role Phone Wilmer Mccurdy MD Unavailable [phone] Source Comments [facility] [employer],non-owned Affiliates and Associated Physician Practices is amultiple site organization consisting of ambulatory clinics and hospital sitesin [place], [place] and [place]. This disclosure is being madepursuant to the Care Everywhere program and may not contain all information available regarding this patient. Last updated 18.[facility] [employer] Allergies Active Allergy Reactions Criticality Noted Date Comments Fentanyl 05/12/2014 Patch/ RASH Medications * Be aware that medications may not be up to date on this document. Alwaysverify current medications with the patient. lisinopril (PRINIVIL; ZESTRIL) 10 MG tablet Take 10 mg by mouth once daily. Active escitalopram (LEXAPRO) 10 MG tablet Take 10 mg by mouth once daily. Active fenofibrate (LOFIBRA) 54 MG tablet Take 54 mg by mouth once daily. Take with largest meal of the day. Active alendronate (FOSAMAX) 70 MG tablet Take 70 mg by mouth every 7 days before meal. Take in morning with full glass of water on empty stomach and remain upright for 30 min Active hydroxychloroq uine (PLAQUENIL) 200 MG tabletIndicati ons:Rheumatoid arthritis(714. 0) (HCC) Take 2 Tabs by mouth once daily. 60 Tab 11 4 Active acetaminophen (TYLENOL) 500 MG tabletIndicati ons:Rheumatoid arthritis(714. 0) ([facility]) Take 2 Tabs by mouth 3 times daily. Maximum allowable Acetaminophen amount = 4 Grams (4000 mg) / 24 hours. 4 Active Additional Information Patient not taking.Reported on 05/01/2017 trazodone (DESYREL) 100 MG tabletIndicati ons:Insomnia 0.5-1 Tabs at bedtime. 30 Tab 12 4 Active Cholecalcifero l (VITAMIN D) 1000 UNITS capsuleIndicat ions:Osteoporo sis Take 1 Cap by mouth once daily. 4 Active calcium carbonate (TUMS) 500 MG chew tabletIndicati ons:Osteoporos is Take 2 Tabs by mouth 2 times daily with morning and evening meal. 90 Tab 0 4 Active Additional Information Patient not taking.Reported on 05/01/2017 methotrexate 2.5 MG tablet Take 8 Tabs by mouth every 7 days. 32 Tab 6 4 Active Additional Information Patient not taking.Reported on 05/01/2017 morphine CR 12hr (MS CONTIN) 15 MG tabletIndicati ons:Sciatica, right,long term care pharmacist current use of opiate analgesic Take 1 Tab by mouth every 12 hours. 60 Tab 0 4 Active Additional Information Patient not taking.Reported on 05/01/2017 magnesium hydroxide (MILK OF MAGNESIA CONC) 2400 MG/10ML suspensionIndi cations:Consti pation Take 5 mL by mouth once daily. 1 Bottle 12 4 Active Additional Information Patient not taking.Reported on 05/01/2017 senna (SENOKOT) 8.6 MG tabletIndicati ons:Constipati on Take 1 Tab by mouth once daily. 0 4 Active Additional Information Patient not taking.Reported on 05/01/2017 methadone (DOLOPHINE) 10 MG tabletIndicati ons:Rheumatoid arthritis(714. 0) (HCC),Sciatica , right,long term care pharmacist current use of opiate analgesic Take 0.5 Tabs by mouth 3 times daily. 90 Tab 0 4 Active folic acid (FOLVITE) 1 MG tablet Take one tab po daily 30 Tab 6 5 Active Vortioxetine HBr (TRINTELLIX PO) Active Active Problems Problem Noted Date Diagnosed Date Rheumatoid arthritis 05/12/2014 Overview (06/06/2015): Seronegative arthritis Trochanteric bursitis 05/12/2014 Family History Medical History Relation Name Comments CAD (Coronary Artery Disease) Father Diabetes Father Hypertension Father Arthritis - Osteo Mother Hypertension Mother Lupus Mother Diabetes Sister Hypertension Sister Relation Name Status Comments Father Mother Sister Social History Tobacco Use Types Packs/Day Years [...] Industry Job Start Date Job End Date 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[employer] Not on file Not on file Not on file Last Filed Vital Signs Vital Sign Reading Time Taken Comments Blood Pressure 138/82 05/01/2017 10:16 AM CDT Pulse 65 05/01/2017 10:16 AM CDT Temperature 36.8 C (98.3 F) 05/01/2017 10:16 AM CDT Respiratory Rate 16 05/01/2017 10:16 AM CDT Oxygen Saturation 99% 05/01/2017 10:16 AM CDT Inhaled Oxygen Concentration - - Weight 59 kg (130 lb) 05/01/2017 10:16 AM CDT Height 154.9 cm (5' 1 ) 05/01/2017 10:16 AM CDT Body Mass Index 24.56 05/01/2017 10:16 AM CDT Plan of Treatment Health Maintenance Due Date Last Done Comments COLOGUARD (AGES 45-75) - COL ON CA SCREENING 1965 COLON MONITORING 1965 COLONOSCOPY - COLON CA SCREENING 1965 CT COLONOGRAPHY - COLON CA SCREENING 1965 Colorectal Cancer Screening 1965 FIT - COLON CA SCREENING 1965 FLEX SIG - COLON CA SCREENING 1965 LIPID TESTING 1965 MAMMOGRAM 1965 HIV SCREENING 1980 HEPATITIS C SCREENING 04/23/1983 DTAP/TDAP/TD VACCINES (1 - Tdap) 1984 HEPATITIS B VACCINE (1 of 3 - 19+ 3-dose series) 1984 PNEUMOCOCCAL VACCINE 50+ (1 of 1 - PCV) 2015 ZOSTER VACCINE (1 of 2) 2015 COVID-19 VACCINE (2023-2 5 season) 2024 DEPRESSION SCREENING 07/30/2024 INFLUENZA VACCINE (Season Ended) 2025 HIB VACCINE Aged Out No longer eligi ble based on patient's age to complete this topic HPV VACCINE Aged Out No longer eligi ble based on patient's age to complete this topic MENINGOCOCCAL (Group B) VACC INE SHARED DECISION-MAKING Aged Out No longer eligibl e based on patient's age to complete this topic MENINGOCOCCAL GROUPS A/C/Y/W VACCINE Aged Out No longer eligible b ased on patient's age to complete this topic Insurance [facility] Care Teams Spinner Cap Frame Relationship Specialty [place] [id number] [address] [place] [id number] Anesthesiology-Pain Management 06/02/14
--- OUTSIDE RECORDS SUMMARY | 2024-11-13 14:21 | XMS_ITS | Encounter Summary ---
Author Organization [facility] ALEYDA Umanzor [facility] Address [address] [place] [address] Care Team Providers Care Drafting Detailer Name Role Phone Unavailable Primary Care Provider Unavailabl e Reason for Visit * Reason Comments Establish Care Encounter Details Date Type Department Care Team (Late st Contact Info) Description 11/13/2024 1:30 PM CDT Office Visit [facility] Oncology and Hematology - [place] [address] [facility] [address] [place] [address] Wilmer Varela MD [address] [place] [address] Chronic anemia (Primary Dx) Social History Tobacco Use Types Packs/Day Years Used Date Smoking Tobacco: Never Smokeless Tobacco: Never Alcohol Use Standard Drinks/Week Comments Yes 0 (1 standard drink = 0.6 oz pur e alcohol) Occasionally Comments Unknown Sex and Gender Information Value Date Recorded Sex Assigned at Not on file Legal Sex Female 9:53 AM 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 Problem list There is no problem list on file for this patient. Previous TREATMENT ? Measurable Disease ? Reason for Visit Jacinta Bey is a 59 y.o. female who was referred for consultation for iron deficiency anemia. History of present illness This is a 59-year-old female with history of rheumatoid arthritis and morbid obesity status post gastric bypass surgery in 2009 with 106 pound weight loss. Currently she is on Orencia Plaquenil and methotrexate for rheumatoid arthritis and has been dealing with some arthralgia pain involving the hands. She also has a history of hyponatremia. Patient is taking iron every other day basis in July2024. Her last colonoscopy was done [address] Chan showed no evidence of bleeding. She neverhad EGD done. Denies being a vegetarian. She has never received iron infusion. She is complaining of extreme tiredness and fatigue. Patient is also on vitamin B12 injection at home on a monthly basis. No other new complaints. Past Medical History Past Medical History: Diagnosis Date Depression Hypertension Rheumatoid arthritis Surgical History Past Surgical History: Procedure Laterality Date HX CHOLECYSTECTOMY 1997 HX HYSTERECTOMY 1995 Medications Current Outpatient Medications Medication Sig Dispense Refill traMADol (ULTRAM) 50 mg tablet Take 50 mg by mouth 4 times daily as needed for Pain. predniSONE (DELTASONE) 5 mg tablet Take 5 mg by mouth 2 times daily with meals. hydroxychloroquine (PLAQUENIL) 200 mg tablet Take 200 mg by mouth 2 times daily. amLODIPine (NORVASC) 10 mg tablet Take 10 mg by mouth daily. omeprazole (PriLOSEC) 40 mg Capsule, Delayed Release(E.C.) Take 40 mg by mouth daily. traZODone (DESYREL) 50 mg tablet Take 50 mg by mouth daily at bedtime. folic acid (FOLVITE) 1 mg tablet Take 1 mg by mouth daily. buPROPion HCL (WELLBUTRIN XL) 300 mg Extended Release 24 hour tablet Take 300 mg by mouth daily in the morning. cyanocobalamin (VITAMIN B-12) 1,000 mcg/mL Solution Inject 1,000 mcg by intramuscular injection every 30 days. abatacept (ORENCIA SUBCUT) Inject 125 mg/mL by subcutaneous injection every 7 days. venlafaxine (EFFEXOR XR) 37.5 mg Extended Release 24 hour capsule Take 37.5 mg by mouth daily. methotrexate PF 25 mg/mL Solution Inject 1 mL by subcutaneous injection every 7 days. No current facility-administered medications for this visit. Allergies Allergies Allergen Reactions Morphine Other (See Comments) Chest burning Fentanyl Rash Patch/ RASH Immunizations: Immunization History Administered Date(s) Administered (SPIKEVAX) (12 YRS UP PRIMARY SERIES) COVID-19 VACCINE - MRNA-1273(PF) 100 MCG/0.5 ML IM SUSP 11/16/2020, 12/21/2020 Family History Family History Problem Relation Name Age of Onset Heart Disease Father Diabetes Father SLE Mother Diabetes Brother Diabetes Sister No Known Problems Sister No Known Problems Child Social History Social History Tobacco Use Smoking status: Never Smokeless tobacco: Never Substance Use Topics Alcohol use: Yes Comment: Occasionally Review of Systems Constitutional: Patient did not mention fever; no night sweats; no anorexia; no weight loss; complain of tiredness and fatigue NEENT: Patient did not mention headache; no change in vision; no change in hearing; no sore throat;no dysphagia Respiratory: Patient did not mention shortness of breath; no pleuritic chest pain; no cough; no hemoptysis Cardiac: Patient did not mention cardiac-like chest pain; no palpitations; no orthopnea; no PND; noDOE Breasts: Patient did not mention tenderness; no masses GI: Patient did not mention abdominal pain; no nausea; no vomiting; no diarrhea; no hematochezia; no melena : Patient did not mention dysuria; no frequency; no hesitancy; no hematuria LOSS PREVENTION ANALYST: Musculosketetal: Patient did not mention bone pain; complain of arthralgia; no joint swelling; no myalgia; Skin: Patient did not mention pruritis; no rash; no petechiae; no ecchymoses Endocrine: Patient did not mention polydipsia; no polyuria; no unusual weight gain Neuro: Patient did not mention headache; no change in vision; no sensory changes; no muscle weakness; no confusion; no seizures Psych: Patient did not mention anxiety; no depression; Physical Exam Vitals: As per nursing note Constitutional: Well developed, well nourished, no acute distress, non-toxic appearance Teeth and gum. No signs of infection or swelling. Eyes: PERRL, conjunctiva normal HEENT: Atraumatic, external ears normal, nose normal, oropharynx moist, no pharyngeal exudates. no sinus tenderness Neck- normal range of motion, no tenderness, supple Respiratory: No respiratory distress, normal breath sounds, no rales, no wheezing Cardiovascular: Normal rate, normal rhythm, no murmurs, no gallops, no rubs GI: Soft, nondistended, normal bowel sounds, nontender, no splenomegaly, no hepatomegaly, no mass, no rebound, no guarding : No costovertebral angle tenderness Musculoskeletal: No edema, no tenderness, no deformities. Back- no tenderness Integument: Well hydrated, no rash, Digits and nails inspection normal Lymphatic: No lymphadenopathy noted Neurologic: Alert & oriented x 3, CN 2-12 normal, normal motor function, normal sensory function, no focal deficits noted Psychiatric: Speech and behavior appropriate ? labs No results found for this or any previous visit (from the past 24 hours). Labs from July 2024 showed WBC 10.2 hemoglobin 9.6 platelet 251,000 creatinine 1.0 iron 19 saturation 5% Pathology ? Imaging & Other Studies Performance Status? Assessment / Plan: ? Iron deficiency anemia. Patient is a 59-year-old female with history of gastric bypass surgery in 2009 with 106 pound weight loss along with history of rheumatoid arthritis. Patient is currently on Plaquenil, Orencia and methotrexate for rheumatoid arthritis. She is taking oral iron every other day basis in July 2024. Her colonoscopy was done 1 year ago came back unremarkable. She denies any bleeding including melena and hematochezia. Her current weight and appetite remain stable. She deniesbeing a vegetarian. She is also on vitamin B12 injection on a monthly basis at home. At this time Iwill check labs including a CBC, CMP, iron profile and vitamin B12 level. She will continue oral iron that she is taking every other day basis. We will start her on iron infusion hopefully next week.I will see her back in 2 months with repeat labs. I have answered all the questions to patient satisfaction. Rheumatoid arthritis. Patient is on Plaquenil, methotrexate and Orencia. She will follow-up with her windows admin. Hypertension. Patient is on amlodipine. Vitamin B12 deficiency. She will continue monthly B12 injections at home. GERD. She is on Prilosec. Thank you very much for allowing me to participate in Jacinta Bey's evaluation and management. Please feel free to contact if I can be of any further assistance in your patient???s care requiring hematology or oncology evaluation. Sincerely, ? ? Wilmer Varela M.D. cell TOBACCO COUNSELING She is not a tobacco/nicotine user. Wilmer Varela MD ,11/13/2024 2:14 PM ? Total time spent 60 minutes, two third of the total time spent counseling patient [id number]. CC:? documented in this encounter Plan of Treatment Upcoming Encounters Date Type Department Care Team (Late st Contact Info) Description 01/19/2025 2:00 PM CDT Telephone Check Up [facility] Oncology and Hematology - [place] [address] [facility] [address] [place] [id number] Wilmer Varela MD [address] [place] [address] Scheduled Orders Name Type Priority Associated Diagnoses Orde r Schedule CBC WITH DIFFERENTIAL Lab Stat Chronic anemia Expected: 11/13/2024, Expires: 11/13/2025 COMPREHENSIVE METABOLIC PANEL Lab Stat Chronic anemia Expected: 11/13/2024, Expires: 11/13/2025 FERRITIN Lab Routine Chronic anemia Expected: 11/13/2024, Expires: 11/13/2025 IRON, TIBC, AND PERCENT SATURATION Lab Routine Chronic anemia Expected: 11/13/2024, Expires: 11/13/2025 TRANSFERRIN RECEPTOR TFR SOLUBLE Lab Routine Chronic anemia Expected: 11/13/2024, Expires: 11/13/2025 VITAMIN B12 AND FOLATE Lab Routine Chronic anemia Expected: 11/13/2024, Expires: 11/13/2025 documented as of this encounter Visit Diagnoses Diagnosis Chronic anemia- Primary Anemia, unspecified documented in this encounter
--- OUTSIDE RECORDS SUMMARY | 2024-11-13 14:21 | XMS_ITS | Encounter Summary ---
Author Organization [facility] Address [address] [place] [address] Care Team Providers Care A Auxiliary Name Role Phone Jeannette Gloria NP Primary Care Provider [phone] Encounter Details Date Type Department Care Team (Late st Contact Info) Description 01/09/2024 [employer] Message Enc [facility] Family & Internal Medicine [address] [address] Jeannette Gloria NP [id number] [place] [address] New prescription Social History Tobacco Use Types Packs/Day Years Used Date Smoking Tobacco: Former Passive Smoke Exposure: Past Smokeless Tobacco: Never Alcohol Use Standard Drinks/Week Comments Yes 0 (1 standard drink = 0.6 oz pur e alcohol) social use PHQ-2 Answer Date Recorded Patient Health Questionnaire-2 Score 0 01/09/2024 Comments No Sex and Gender Information Value Date Recorded Sex Assigned at Female 08/29/2024 7:35 AM FURNACE SETTER Legal Sex Female 4:16 PM CDT Gender Identity Not on file Sexual Orientation Not on file documented as of this encounter Functional Status * Over the past 2 weeks, how often have you been bothered by any of the following problems? Question Answer Date of Assessment Author Status Little interest or pleasure in doing things Not at all 01/09/2024 7:06 AM CDT Zoey Espinosa MA Ac tive Feeling down, depressed, or hopeless Not at all 01/09/2024 7:06 AM Zoey Dorsey MA Active Patient Health Questionnaire-2 Score 0 01/09/2024 7:06 AM Zoey Dorsey MA Active * Question Answer Date of Assessment Author Status Trouble falling or staying asleep, or sleeping too much Several days 01/09/2024 7:06 AM Zoey Dorsey MA Active Feeling tired or having little energy Nearly every day 01/09/2024 7:06 AM Zoey Dorsey MA Active Poor appetite or overeating Not at all 01/09/2024 7:06 AM Zoey Dorsey MA Active Feeling bad about yourself - or that you are a failure or have let yourself or your family down Not at all 01/09/2024 7:06 AM Zoey Dorsey MA Active Trouble concentrating on things, such as reading the newspaper or watching television Not at all 01/09/2024 7:06 AM Zoey Dorsey MA Active Moving or speaking so slowly that other people could have noticed? Or the opposite - being so fidgety or restless that you have been moving around a lot more than usual. Several days 01/09/2024 7:06 AM Zoey Dorsey MA Active Thoughts that you would be better off or hurting yourself in some way Not at all 01/09/2024 7:06 AM Zoey Dorsey MA Active Patient Health Questionnaire-9 Score 5 01/09/2024 7:06 AM Zoey Dorsey MA Active * If you checked off any problems on this questionnaire so far, Question Answer Date of Assessment Author Status How difficult have these problems made it for you to do your work, take care of things at home, or get along with other people? Somewhat difficult 01/09/2024 7:06 AM Zoey Dorsey MA Active * Over the last 2 weeks, how often have you been bothered by any of the following problems? Question Answer Date of Assessment Author Status Feeling nervous, anxious, or on edge 1 01/09/2024 7:07 AM CDT Zoey Espinosa MA Ac t[place]od[place] Not being able to stop or control worrying 0 01/09/2024 7:07 AM CDT Zoey Espinosa MA A ctive Worrying too much about different things 0 01/09/2024 7:07 AM CDT Zoey Espinosa MA A ctive Trouble relaxing 1 01/09/2024 7:07 AM CDT Zoey Espinosa MA Active Being so restless that it is hard to sit still 1 01/09/2024 7:07 AM CDT Zoey Espinosa MA Active Becoming easily annoyed or irritable 0 01/09/2024 7:07 AM CDT Zoey Espinosa MA Ac [place]od[place] Feeling afraid as if something awful might happen 0 01/09/2024 7:07 AM CDT Zoey Espinosa MA Ac tive JULIETA-7 Total Score 3 01/09/2024 7:07 AM CDT Zoey Espinosa MA Active documented as of this encounter Plan of Treatment Not on file documented as of this encounter Visit Diagnoses Diagnosis Moderate episode of recurrent major depressive disorder (CMS/HCC) Generalized anxiety disorder documented in this encounter Additional Health Concerns Assessment Noted Time PHQ-9 Depression Total Score: 5 01/09/20 7:06 AM CDT documented as of this encounter Care Teams A Auxiliary Relationship Specialty [place] [id number] [address] PCP - General Nurse Practitioner Family 12/05/23 documented as of this encounter
--- OUTSIDE RECORDS SUMMARY | 2024-11-13 14:22 | XMS_ITS | Continuity of Care Document ---
Author Organization [facility] Address [address] [place] [phone] Phone Care Team Providers Care Target Network Analyst Name Role Phone Paris Quinn OD Unavailable Unavailable Medications Medication Instructions Dosage Effective Dates (start - stop) Status Comments Plaquenil 200 mg tablet take 1 tablet by oral route every day 200 MG - Active Trexall 15 mg tablet take 1 tablet by oral route every week 15 MG - Active Vitamin D3 Complete 18 mg iron-800 mcg-150 mg tablet - Active methadone 5 mg tablet take 1 tablet by oral route every 8 hours 5 MG - Active omeprazole 20 mg capsule,delayed release take 1 capsule by oral route every day 30 minutes to 1 hour before a meal 20 MG - Active Otrexup (PF) 10 mg/0.4 mL subcutaneous auto-injector inject 0.4 milliliter by subcutaneous route every week 10 MG - No Longer Active Advance Directives Directive Yes / No Effective Date File Name Resuscitation Not Answered N/A N/A Life Support Not Answered N/A N/A Intubation Not Answered N/A N/A Antibiotics Not Answered N/A N/A IV Fluid Support Not Answered N/A N/A Tube Feed Not Answered N/A N/A Other Directive N/A N/A WARNING:The information contained in this section is historical and is provided for information only and does not constitute a legal document or any assurance that the information is still accurate. Please verify the information with the garrido of the legal document before using it for clinical purposes. Encounters Encounter Description Practice Location Reason(s) For Visit Diagnoses Date Provider Providers Copied on Encounter [facility] , [address] [place] [address], [place], [place], [id number], tel:[phone] [facility] No Information [facility]. [address], [place], [id number], [place]. tel:[phone] Referring Provider: Paris Mann, [address], [place], [address] . tel:[phone] Family History Family Member Type Diagnosis Age At Onset Problem (finding) Diabetes mellitus Payers Payer name Insurance type Covered alliance party ID Authoriza tion(s) No Information Social History Type Description Quantity Date Captured Comments Alcohol Use Details No Caffeine Use Details Unknown Tobacco Use Status No Information Smoking Status Unknown if ever smoked 15 Sex Female Chief Complaint And Reason For Visit No Information Reason For Referral Reason For Referral No Information History Of Present Illness Encounter Date Complaint History Of Prese nt Illness No Information Functional Status Date Functional Assessmen t No Information Instructions Date Instruction Additional Infor vamshi *Pt walked out witho ut being seen. - Explained to Pt that we would not be able to fit her with contact lenses today due to not having her trial lenses in stock until next month when we start fitting contact lenses. Pt became very agitated and angry because as this was her main reason in wanting an exam. Explained that we could bring her back in a few weeks but Pt states she cannot wait that long. Pt does not want this exam charged to her insurance and walked out without allowing us an opportunity to help situation. Assessments Type Assessment Date No Information Patient Care Teams Name Effective Dates (start - stop) Status Members No Information
[2024-11-13 14:24] LABS: Basophils Absolute Auto 0.1 K/mm3 (0.0-0.1); Basophils Percent Auto 0.4 % (0.2-1.2); Eosinophils Percent Auto 0.1 % (0-4.4); Hematocrit 35.4 % (37.0-47.0); Hemoglobin 10.8 g/dL (12.0-15.0); Immature Granulocyte Absolute 0.05 K/mm3 (0.00-0.031); Immature Granulocyte Percent A 0.4 % (0-0.5); Lymphocytes Absolute Auto 2.52 K/mm3 (0.9-3.2); Lymphocytes Percent Auto 18.1 % (18.3-44.2); Mean Corpuscular HGB Conc 30.5 g/dl (32-36); Mean Corpuscular Hemoglobin 26.9 pg (26-34); Mean Corpuscular Volume 88.3 fl (80-100); Mean Platelet Volume 9.8 fl (7.4-10.4); Monocytes Absolute Auto 1.1 K/mm3 (0.1-0.6); Neutrophils Absolute Auto 10.2 K/mm3 (1.3-6.7); Platelet Count Result 231 k/mm3 (150-375); Red Blood Count 4.01 M/mm3 (4.2-5.4); Red Cell Distribution Width 18.7 % (11.5-14.5)
[2024-11-13 16:55] LABS: Iron 30 ug/dL (37-170)
[2024-11-13 17:05] LABS: Percent Iron Saturation 8 % (20-50)
[2024-11-13 19:42] LABS: Alanine Aminotransferase 20 U/L (6-35); Albumin Level 4.4 g/dL (3.5-5.1); Alkaline Phosphatase 60 U/L (38-126); Anion Gap 6 mmol/L (4-12); Aspartate Amino Transferase 41 U/L (14-36); Bilirubin,Total 0.3 mg/dL (0.2-1.3); Blood Urea Nitrogen 14 mg/dL (7-17); Calcium 9.4 mg/dL (8.4-10.2); Carbon Dioxide 28 mmol/L (22-30); Chloride 99 mmol/L (98-107); Estimated Glomerular Filt Rate 53; Glucose 101 mg/dL (65-110); Potassium 4.1 mmol/L (3.4-5.0); Sodium 133 mmol/L (137-145)
[2024-11-13 20:57] LABS: Folic Acid > 20.0 ng/mL (2.76->20); Vitamin B12 > 1000.0 pg/mL (239-931)
== END 2024-11-13 14:08 | disposition home or self-care (01) ==
LOC: ANHLAB 14:08
PROVIDERS: Visit Provider Internal Medicine Hematology & Oncology
DX: D64.9 Anemia, unspecified (principal)
CPT/HCPCS: 36415; 80053; 82607; 82728; 82746; 83540; 83550; 84238; 85025

== ENCOUNTER 2024-11-25 15:00 | Emergency (ER) | payer BC, SELFPAY ==
[2024-11-25] VITALS (8 sets, daily range): BP systolic 123–168; BP diastolic 65–102; PULSE 74–91; RESP 14–20; TEMP 36.1–36.6; O2SAT 98–100
--- NOTE | ~2024-11-25 | XR_ITS ---
EXAMINATION: XR chest 1V portable DATE: 11/25/2024 15:48 INDICATION: Shortness of breath TECHNIQUE: frontal view of the chest was obtained. COMPARISON: None FINDINGS: The lungs are clear with no focal airspace opacities, pulmonary edema, pleural effusion or pneumothor ax. The cardiomediastinal silhouette is normal. Visualized bones and soft tissues are unremarkable. C ystectomy clips in right upper quadrant. Suture line in the left epigastric region. IMPRESSION: 1. No acute cardiopulmonary disease. Reviewed, dictated and finalized at location B.
--- NOTE | 2024-11-25 14:58 | PC.NURSE ---
Dr. Miranda at bedside immediately upon EMS arrival to [place].
[2024-11-25] MEDS: LORazepam INJ (*CRX) 2 MG/ML VIAL 0.5 MG IV PUSH (15:13)
[2024-11-25 15:21] LABS: Basophils Percent Auto 0.2 % (0.2-1.2); Eosinophils Percent Auto 0.2 % (0-4.4); Hematocrit 39.7 % (37.0-47.0); Hemoglobin 11.9 g/dL (12.0-15.0); Immature Granulocyte Absolute 0.14 K/mm3 (0.00-0.031); Immature Granulocyte Percent A 0.9 % (0-0.5); Lymphocytes Absolute Auto 5.87 K/mm3 (0.9-3.2); Lymphocytes Percent Auto 38.7 % (18.3-44.2); Mean Corpuscular Hemoglobin 26.5 pg (26-34); Mean Corpuscular Volume 88.4 fl (80-100); Mean Platelet Volume 10.8 fl (7.4-10.4); Monocytes Absolute Auto 1.5 K/mm3 (0.1-0.6); Monocytes Percent Auto 10.1 % (2.6-8.5); Neutrophils Absolute Auto 7.6 K/mm3 (1.3-6.7); Neutrophils Percent Auto 49.9 % (45.5-73.1); Platelet Count Result 469 k/mm3 (150-375); Red Blood Count 4.49 M/mm3 (4.2-5.4); Red Cell Distribution Width 17.5 % (11.5-14.5); White Blood Count 15.2 K/mm3 (4.5-10.0)
[2024-11-25 15:31] LABS: Alanine Aminotransferase 22 U/L (6-35); Albumin Level 3.9 g/dL (3.5-5.1); Alkaline Phosphatase 57 U/L (38-126); Anion Gap 11 mmol/L (4-12); Aspartate Amino Transferase 20 U/L (14-36); Bilirubin,Total 0.3 mg/dL (0.2-1.3); Blood Urea Nitrogen 11 mg/dL (7-17); Calcium 9.1 mg/dL (8.4-10.2); Carbon Dioxide 19 mmol/L (22-30); Chloride 96 mmol/L (98-107); Estimated CRCL calculation 51 ml/min; Estimated Glomerular Filt Rate > 60; Glucose 184 mg/dL (65-110); Sodium 126 mmol/L (137-145)
--- NOTE | 2024-11-25 17:06 | ED_ITS ---
HPI - Allergic Reaction General Chief complaint: Allergic Reaction Stated complaint: Allergic reaction Time Seen by Provider: 11/25/24 15:03 History of Present Illness HPI narrative: Patient is a 59-year-old female who presents ER after having allergic reaction at the infusion center. She received IV iron in 2 minutes after it started she began having swelling of her throat and could not breathe. She received 75 mg of Benadryl, 100 mg of hydrocortisone, 20 mg of famotidine, and intramuscular epinephrine. EMS picked her up and she is still having trouble swallowing and gave her additional intramuscular injection of epinephrine. Patient feels like she has dry mouth here. She still feels discomfort in her throat but reports that is getting better. She is speaking in full sentences. No wheezing or hypoxia. No hypotension. Related Data Home Medications ?Medication ?Instructions ?Recorded ?Confirmed ?Last Taken ?Type cyanocobalamin (vitamin B-12) 1,000 mcg IM MONTHLY 06/18/19 11/25/24 Unknown History 1,000 mcg/mL injection solution folic acid 1 mg tablet 1 mg PO DAILY 06/18/19 11/25/24 Unknown History hydroxychloroquine 200 mg tablet 200 mg PO DAILY 06/18/19 11/25/24 Unknown History methotrexate sodium (PF) 25 mg/mL 25 mg subcut WEEKLY 06/18/19 11/25/24 Unknown History injection solution omeprazole 40 mg capsule,delayed 40 mg PO DAILY 06/18/19 11/25/24 Unknown History release trazodone 50 mg tablet 50 mg PO HS 06/18/19 11/25/24 Unknown History famotidine 20 mg tablet (Acid-Pep) 20 mg PO DAILY 11/25/24 11/25/24 Unknown History prednisone 20 mg tablet 5 mg PO DAILY 11/25/24 11/25/24 Unknown History venlafaxine 37.5 mg 37.5 mg PO DAILY 11/25/24 11/25/24 Unknown History capsule,extended release 24 hr (Effexor XR) Allergies Allergy/AdvReac Type Severity Reaction Status Date / Time ferumoxytol Allergy Severe Swelling Verified 11/25/24 15:12 of Lip/Tongue/Throat Review of Systems 2 Review of Systems: All systems reviewed & are unremarkable except as noted in HPI and below Constitutional: Constitutional: Reports no additional constitutional complaints ENT: Reports system reviewed and no additional complaints, except as documented Cardiovascular: Cardiovascular: Reports no additional cardiovascular complaints Respiratory: Respiratory: Reports no additional respiratory complaints Allergic/Immunologic: Allergic/Immunologic: Denies lip swelling, Reports throat swelling, Reports tongue swelling (Per EMS) and Denies wheezing PMFSH Past Medical History Medical History (Updated 11/25/24 @ 18:40 by Frandy Miranda MD) Rheumatoid arthritis Exam 2 Narrative: GENERAL: Anxious-appearing, well-nourished, and in mild distress. HEAD: Normocephalic, atraumatic. EYES: PERRL and EOMI. ENT: Mucous membranes moist. CHEST: Clear to auscultation. No respiratory distress. HEART: Regular rate and rhythm. Normal peripheral pulses. ABDOMEN: Soft, nontender, nondistended. EXTREMITIES: Normal range of motion. No edema. SKIN: Warm, dry, no rash. NEURO: Alert and oriented x3. PSYCH: Normal mood and affect. Course Course Emergency Course: Symptoms resolved. Feeling well after prolonged observation. Will discharge on quick steroid taper. Vital Signs Vital signs: Vital Signs Temperature 97 F L 11/25/24 14:59 Pulse Rate 91 11/25/24 14:59 Respiratory Rate 19 11/25/24 14:59 Blood Pressure 123/77 11/25/24 14:59 Pulse Oximetry 100 11/25/24 14:59 Oxygen Delivery Room Air 11/25/24 14:59 Temperature 97.8 F 11/25/24 18:17 Pulse Rate 84 11/25/24 18:17 Respiratory Rate 20 11/25/24 18:17 Blood Pressure 142/79 H 11/25/24 18:17 Pulse Oximetry 98 11/25/24 18:17 Oxygen Delivery Room Air 11/25/24 15:05 MDM - Allergic Reaction Lab Data 11/25/24 15:17 11/25/24 15:17 Labs: Lab Results 11/25/24 Range/Units 15:17 WBC 15.2 H (4.5-10.0) K/mm3 RBC 4.49 (4.2-5.4) M/mm3 Hgb 11.9 L (12.0-15.0) g/dL Hct 39.7 (37.0-47.0) % MCV 88.4 (80-100) fl MCH 26.5 (26-34) pg MCHC 30.0 L (32-36) g/dl RDW 17.5 H (11.5-14.5) % Plt Count 469 H D (150-375) k/mm3 MPV 10.8 H (7.4-10.4) fl Immature Gran % (Auto) 0.9 H (0-0.5) % Neut % (Auto) 49.9 (45.5-73.1) % Lymph % (Auto) 38.7 (18.3-44.2) % [place] % (Auto) 10.1 H (2.6-8.5) % Eos % (Auto) 0.2 (0-4.4) % Baso % (Auto) 0.2 (0.2-1.2) % Lymph # (Auto) 5.87 H (0.9-3.2) K/mm3 [place] # (Auto) 1.5 H (0.1-0.6) K/mm3 Eos # (Auto) 0.0 (0-0.3) K/mm3 Baso # (Auto) 0.0 (0.0-0.1) K/mm3 Abs Immat Gran (auto) 0.14 H (0.00-0.031) K/mm3 Absolute Neuts (auto) 7.6 H (1.3-6.7) K/mm3 Absolute Nucleated RBC 0.000 (0.0-0.012) K/mm3 Nucleated RBC % 0.0 (0.0-0.2) % Sodium 126 L (137-145) mmol/L Potassium 4.0 (3.4-5.0) mmol/L Chloride 96 L (98-107) mmol/L Carbon Dioxide 19 L (22-30) mmol/L Anion Gap 11 (4-12) mmol/L BUN 11 (7-17) mg/dL Creatinine 0.94 (0.7-1.0) mg/dL Estim Creat Clear Calc 51 ml/min Estimated GFR > 60 (59 - ) Glucose 184 H (65-110) mg/dL Calcium 9.1 (8.4-10.2) mg/dL Total Bilirubin 0.3 (0.2-1.3) mg/dL AST 20 (14-36) U/L ALT 22 (6-35) U/L Alkaline Phosphatase 57 (38-126) U/L Total Protein 6.0 L (6.3-8.2) g/dL Albumin 3.9 (3.5-5.1) g/dL Discharge Plan Discharge Clinical Impression: Allergic reaction Patient Disposition: Home Condition: Stable Instructions: General Allergic Reaction (ED) Additional Instructions: Return ER if he cannot breathe, cannot swallow, have additional concerns. Take the prednisone as prescribed. Patient Language: Uzbek Prescriptions: New prednisone 10 mg tablet 10 mg PO DIRECTED Qty: 20 0RF Rx Instructions: see taper instructions, 40 mg x 2 days, 30 mg x 2 days, 20 mg x 2 days, 10 mg x 2 days No Action trazodone 50 mg tablet 50 mg PO HS omeprazole 40 mg capsule,delayed release(DR/EC) 40 mg PO DAILY cyanocobalamin (vitamin B-12) 1,000 mcg/mL solution 1,000 mcg IM MONTHLY folic acid 1 mg tablet 1 mg PO DAILY hydroxychloroquine 200 mg tablet 200 mg PO DAILY methotrexate sodium (PF) 25 mg/mL solution 25 mg subcut WEEKLY prednisone 20 mg tablet 5 mg PO DAILY venlafaxine [Effexor XR] 37.5 mg capsule,extended release 24hr 37.5 mg PO DAILY famotidine [Acid-Pep] 20 mg tablet 20 mg PO DAILY Follow-up/Referrals: UNKNOWN,DOCTOR [Primary Care Provider] - 1 Week
--- OUTSIDE RECORDS SUMMARY | 2024-11-25 17:12 | XMS_ITS | Clinical Summary ---
Author Organization [facility] Address [address] [address] Care Team Providers Care Shirt Maker Name Role Phone Wilmer Mccurdy MD Unavailable [phone] Source Comments [facility],non-owned Affiliates and Associated Physician Practices is amultiple site organization consisting of ambulatory clinics and hospital sitesin [place], [place], [place] and [place]. This disclosure is being madepursuant to the Care Everywhere program and may not contain all information available regarding this patient. Last updated 18.[facility] Allergies Active Allergy Reactions Criticality Noted Date [...] (TYLENOL) 500 MG tabletIndicati ons:Rheumatoid arthritis(714. 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
--- OUTSIDE RECORDS SUMMARY | 2024-11-25 17:12 | XMS_ITS | Encounter Summary ---
Author Organization [facility] Health Address [address] 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
--- OUTSIDE RECORDS SUMMARY | 2024-11-25 17:13 | XMS_ITS | Clinical Summary ---
[facility] Address [address] [place] [address] Care Team Providers Care Mold Yard Crane Operator Name Role Phone Unavailable Primary Care Provider [...] Encounters Date Type Department Care Team Description 11/18/2024 External Device Data [facility] ABSTRACTION Provider, Abstract 11/18/2024 External Device Data [facility]STRACTION Provider, Abstract 11/18/2024 External Device Data [facility]STRACTION Provider, Abstract 11/18/2024 Orders Only [facility] [place] [address] [place] [phone] Wilmer Varela MD 11/14/2024 Orders Only [facility] [place] [address] [place] [phone] Wilmer Varela MD 11/13/2024 1:30 PM CDT Office Visit [facility] [place] [address] [place] [phone] Wilmer Varela MD Chronic anemia (Primary Dx); Iron deficiency anemia, unspecified iron deficiency anemia type; Iron deficiency 10/08/2024 Orders Only [facility] [place] [address] [place] [address] Wilmer Varela MD from Last 3 Months [...] on file Legal Sex Female 9:53 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 Gender Identity Not on file Sexual Orientation [...] 01/19/2025 2:00 PM CDT Telephone Check Up [facility] [place] [address] [place] [address] Wilmer Varela MD [email or web address] [place] [address] Health Maintenance Due Date Last [...] 01/24/2023 01/24/2022, 01/24 INFLUENZA VACCINE (#1) 2024 COLORECTAL SCREENING 11/06/2027 11/05/2017 Colorectal Cancer Screening 11/06/2027 Procedures Procedure Name Priority Date/Time Associated Diagnosis Comments TRANSFERRIN RECEPTOR TFR SOLUBLE Routine 11/13/2024 3:59 PM CDT COMPREHENSIVE METABOLIC PANEL Routine 11/13/2024 12:45 PM CDT IRON LEVEL Routine 11/13/2024 12:28 PM CDT BASIC METABOLIC PANEL Routine 10/02/2024 3:48 PM EMPLOYMENT PROGRAM 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 BASIC METABOLIC PANEL Routine 10/02/2024 3:46 PM EMPLOYMENT PROGRAM 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 from Last 3 Months Results * TRANSFERRIN RECEPTOR TFR SOLUBLE (11/13/2024 3:59 PM CDT) Blood Wilmer Varela MD CHEMISTRY ORDERABLES Final Resu lt * COMPREHENSIVE METABOLIC PANEL (11/13/2024 12:45 PM CDT) Blood Wilmer Varela MD CHEMISTRY ORDERABLES Final Resu lt * IRON LEVEL (11/13/2024 12:28 PM CDT) Blood Wilmer Varela MD CHEMISTRY ORDERABLES Final Resu lt * BASIC METABOLIC PANEL (10/02/2024 3:48 PM EMPLOYMENT PROGRAM 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) Only the most recent of2 resultswithin the time period is included. Blood Provider Scanning CHEMISTRY ORDERABLES Final Res ult from Last [address] [id number] [place] OUT OF [place]
--- OUTSIDE RECORDS SUMMARY | 2024-11-25 17:13 | XMS_ITS | Continuity of Care Document ---
Author Organization [facility] Address [address] [place] [phone] Phone Care Team Providers Care Numerical Control Programmer Name Role Phone Paris Quinn OD Unavailable [...] Diagnoses Date Provider Providers Copied on Encounter [facility] , [address] [place] [address], [place], [place], [id number], tel:[phone] [facility] No Information [facility] [place]. [address], [place], [id number], [place]. tel:[phone] Referring Provider: Paris Mann, [address], [place], [address] . tel:[phone] Family History Family Member Type Diagnosis Age At Onset Problem (finding) Diabetes mellitus Payers Payer name Insurance type Covered libertarian ID Authoriza tion(s) No Information Social History [...]
== END 2024-11-25 19:03 | disposition home or self-care (01) ==
PROVIDERS: Emergency Provider Emergency Medicine
DX: T78.40XA Allergy, unspecified, initial encounter (principal); M06.9 Rheumatoid arthritis, unspecified
CPT/HCPCS: 36415; 71045; 80053; 85025; 96374; 99284; J2060